=== PATIENT | female | born 1995 | race Caucasian/White ===

== ENCOUNTER 2019-12-04 12:24 | Outpatient (CLI) | payer OTHER ==
--- NOTE | 2019-12-04 13:05 | RAD ---
RADIOGRAPH LUMBAR SPINE 2 VIEWS: DATE: 12/04/2019 HISTORY: 24-year-old female with "acute midline low back pain without sciatica" FINDINGS: Frontal and lateral weightbearing views. There are 5 lumbar-type vertebrae. Alignment is normal. Mild to moderate disc space narrowing at L5-S1. Vertebral body heights and the rest of the disc spaces are maintained. There is no evidence of fracture, significant osteophytes, or any other focal osseous abnormality. IMPRESSION: Disc space narrowing at L5-S1.
--- NOTE | 2019-12-04 13:06 | RAD ---
Radiograph right hip 2 views: HISTORY: 24-year-old female with right hip pain FINDINGS: No fracture or dislocation. Femoral head contour maintained. No osteophytes joint space maintained. M ild sclerosis at right SI joint. IMPRESSION: 1. Normal plain radiographic appearance of right hip. 2. Mild osteoarthrosis right sacroiliac joint.
== END 2019-12-04 12:25 | disposition home or self-care (01) ==
LOC: BICRAD 12:24
PROVIDERS: ATTEND Family Medicine
DX: M25.551 Pain in right hip (principal); M54.5 Low back pain; M47.898 Other spondylosis, sacral and sacrococcygeal region; M51.37 Other intervertebral disc degeneration, lumbosacral region
CPT/HCPCS: 72100